=== PATIENT | male | born 1975 | race Caucasian/White ===

== ENCOUNTER 2017-04-16 16:16 | Emergency (ER) | payer MEDICAID ==
[~2017-04-16] VITALS: Ht 175.3 cm; Wt 96.0 kg
[~2017-04-16 16:16] MED LIST: ALBU8.5H8 IH; CHLO25CA10 PO; CYCL-1 PO; METH500T PO; NEOM10SO7 RIGHT EAR; NO HOME MEDS
[2017-04-16 16:59] LABS: BASOPHILS % (AUTO) 0.4 % (0-1); EOSINOPHILS # (AUTO) 0.2 X10'3 (0-0.9); EOSINOPHILS % (AUTO) 1.7 % (0-6); HEMATOCRIT 43.3 % (42.0-52.0); HEMOGLOBIN 15.3 g/dl (14.0-17.9); LYMPHOCYTES # (AUTO) 1.8 X10'3 (1.1-4.8); LYMPHOCYTES % (AUTO) 17.9 % (21-51); MEAN CORPUSCULAR HEMOGLOBIN 34.4 PG (27.0-31.0); MEAN CORPUSCULAR HGB CONC 35.3 % (33.0-36.5); MEAN CORPUSCULAR VOLUME 97.4 FL (78-98); MEAN PLATELET VOLUME 9.4 FL (7.4-10.4); MONOCYTES # (AUTO) 0.8 X10'3 (0-0.9); MONOCYTES % (AUTO) 7.9 % (2-12); NEUTROPHILS # (AUTO) 7.1 X10'3 (1.8-7.7); NEUTROPHILS % (AUTO) 72.1 % (42-75); PLATELET COUNT 107 X10'3 (140-440); RED BLOOD COUNT 4.45 X10'6 (4.70-6.10); WHITE BLOOD COUNT 9.9 X10'3 (4.5-11.0)
[2017-04-16 17:08] LABS: PARTIAL THROMBOPLASTIN TIME 25 SECONDS (22-32); PROTHROMBIN TIME 9.9 SECONDS (9.0-12.0)
[2017-04-16 17:13] LABS: ALANINE AMINOTRANSFERASE 142 U/L (12-78); ALBUMIN 3.9 G/DL (3.4-5.0); ALKALINE PHOSPHATASE 107 IU/L (46-116); ANION GAP 13 (8-16); ASPARTATE AMINO TRANSFERASE 58 U/L (10-37); BILIRUBIN,TOTAL 0.8 MG/DL (0.1-1.0); BLOOD UREA NITROGEN 13 MG/DL (7-18); BUN/CREATININE RATIO 11.9 (5.4-32.0); CALCIUM 9.3 MG/DL (8.5-10.1); CHLORIDE 103 MMOL/L (99-107); CREATININE 1.09 MG/DL (0.60-1.10); GLUCOSE 88 MG/DL (70-104); POTASSIUM 3.7 MMOL/L (3.5-5.1); SODIUM 139 MMOL/L (135-145); TOTAL CARBON DIOXIDE 23.5 MMOL/L (24-32); TOTAL PROTEIN 7.9 G/DL (6.4-8.2); eGFR 74 ML/MIN
[2017-04-16] MEDS ORDERED: ipratropium/albuterol 3ml nebule NEB ONE (17:30)
[2017-04-16] MEDS ORDERED: normal saline 1000ML IV soln IVB ONE (17:35)
[2017-04-16] MEDS ORDERED: LORazepam 2 mg/ml vial IV ONE (18:55)
[2017-04-16] MEDS ORDERED: benzonatate 100mg capsule PO ONE (19:15)
[2017-04-16] MEDS ORDERED: BENZ-16 PO (19:43)
[2017-04-16 20:16] VITALS: BP 136/87
[2017-04-16] MEDS ORDERED: SULF1TAB49 PO (20:21)
== END 2017-04-16 20:28 | disposition home or self-care (01) ==
LOC: ER 16:17
DX: F10.10 Alcohol abuse, uncomplicated (principal); R50.9 Fever, unspecified; R05 Cough; G89.29 Other chronic pain; M54.9 Dorsalgia, unspecified; Z98.890 Other specified postprocedural states; Y90.9 Presence of alcohol in blood, level not specified
CPT/HCPCS: 36415; 80053; 84484; 85025; 85610; 85730; 93005; 94640; 94760; 96361; 96374; 99285; J2060; J7030

== ENCOUNTER 2017-05-23 14:18 | Emergency (ER) | payer MEDICAID ==
[~2017-05-23] VITALS: Ht 175.3 cm; Wt 96.3 kg
[2017-05-23] MEDS ORDERED: HYDR-565 PO (15:38)
[2017-05-23 16:00] VITALS: BP 134/79
== END 2017-05-23 16:03 | disposition home or self-care (01) ==
LOC: ER 14:18
DX: M54.5 Low back pain (principal); G89.29 Other chronic pain
CPT/HCPCS: 99283

== ENCOUNTER 2017-09-02 08:18 | Emergency (ER) | payer MEDICAID ==
[~2017-09-02] VITALS: Ht 172.7 cm; Wt 96.0 kg
[2017-09-02 08:36] VITALS: BP 149/80
[2017-09-02] MEDS ORDERED: LIDOcaine 1.5% w/epinephrine 1:200,000 5ml ampul IJ ONE (09:35)
[2017-09-02] MEDS ORDERED: HYDR-565 PO (09:40)
[2017-09-02] MEDS ORDERED: SULF1TAB49 PO (09:40)
== END 2017-09-02 10:13 | disposition home or self-care (01) ==
LOC: ER 08:19
DX: L02.413 Cutaneous abscess of right upper limb (principal); L02.214 Cutaneous abscess of groin; G89.29 Other chronic pain; Z86.14 Personal history of Methicillin resistant Staphylococcus aureus infection; Z98.890 Other specified postprocedural states; Z79.899 Other long term (current) drug therapy
CPT/HCPCS: 10060; 99283; A6446; A6449; J3490

== ENCOUNTER 2018-05-01 00:02 | Emergency (ER) | payer MEDICAID ==
[~2018-05-01] VITALS: Ht 175.3 cm; Wt 99.2 kg
[~2018-05-01 00:02] MED LIST changes: +HYDR-4383 PO; -NO HOME MEDS
[2018-05-01 00:05] VITALS: BP 129/95
[2018-05-01] MEDS ORDERED: bacitracin 15gm ointment TP STA (01:07)
[2018-05-01] MEDS ORDERED: SULF1TAB49 PO (01:12)
== END 2018-05-01 01:15 | disposition home or self-care (01) ==
LOC: ER 00:03
DX: L02.11 Cutaneous abscess of neck (principal); G89.29 Other chronic pain; Z98.890 Other specified postprocedural states; Z86.14 Personal history of Methicillin resistant Staphylococcus aureus infection; Z79.899 Other long term (current) drug therapy
CPT/HCPCS: 10060; 99283

== ENCOUNTER 2019-02-21 12:14 | Inpatient (IN) | payer MEDICAID ==
[~2019-02-21] VITALS: Ht 172.7 cm; Wt 98.1 kg
[2019-02-21] MEDS ORDERED: normal saline 1000ML IV soln IV ONE (13:05)
[2019-02-21] MEDS ORDERED: vancomycin/NS 1 GM ADD-VANTAGE 250 ML IV ONE (13:05)
[2019-02-21] MEDS ORDERED: CefTRIAXone 2gm/D5W 50ml 50 ML IV ONE (13:05)
[2019-02-21] MEDS ORDERED: iohexol 300mg/ml 100ml inj. ONE (13:17)
--- NOTE | 2019-02-21 13:43 | NUR ---
RELIEVING RN FOR BREAK, STARTED 22GU TO LEFT AC ON 1ST ATTEMPT, ONE SET OF BLOOD CX DRAWN, BLACKTOP SPREADER AT BEDSIDE, 1ST LITER NS INFUSING W/O
[2019-02-21] MEDS ORDERED: morphine 4 MG/ML inj SYRINge IV ONE (14:25)
[2019-02-21] MEDS ORDERED: ondansetron/PF 4mg/2ml inj IV ONE (14:25)
[2019-02-21 15:16] LABS: BASOPHILS # (AUTO) 0.1 X10'3 (0-0.2); EOSINOPHILS # (AUTO) 0.1 X10'3 (0-0.9); MEAN CORPUSCULAR HEMOGLOBIN 35.1 PG (27.0-31.0); MONOCYTES # (AUTO) 1.1 X10'3 (0-0.9); PLATELET COUNT 92 X10'3 (140-440)
[2019-02-21 15:18] LABS: BASOPHILS % (AUTO) 0.7 % (0-1); EOSINOPHILS % (AUTO) 0.8 % (0-6); HEMATOCRIT 40.4 % (42.0-52.0); HEMOGLOBIN 14.4 g/dl (14.0-17.9); LYMPHOCYTES % (AUTO) 16.5 % (21-51); MEAN CORPUSCULAR HGB CONC 35.7 g/dL (33.0-36.5); MEAN CORPUSCULAR VOLUME 98.3 FL (78-98); MEAN PLATELET VOLUME 9.3 FL (7.4-10.4); NEUTROPHILS # (AUTO) 8.7 X10'3 (1.8-7.7); RED BLOOD COUNT 4.11 X10'6 (4.70-6.10); RED CELL DISTRIBUTION WIDTH 13.2 % (11.5-14.5)
[2019-02-21 15:29] LABS: ALANINE AMINOTRANSFERASE 50 U/L (12-78); ALBUMIN 3.1 G/DL (3.4-5.0); ALBUMIN/GLOBULIN RATIO 0.8 (1.1-1.5); ALKALINE PHOSPHATASE 81 IU/L (46-116); ANION GAP 8 (8-16); ASPARTATE AMINO TRANSFERASE 25 U/L (10-37); BILIRUBIN,TOTAL 0.6 MG/DL (0.1-1.0); BLOOD UREA NITROGEN 13 MG/DL (7-18); BUN/CREATININE RATIO 15.1 (5.4-32.0); CALCIUM 8.3 MG/DL (8.5-10.1); CHLORIDE 101 MMOL/L (99-107); CREATININE 0.86 MG/DL (0.60-1.10); GLUCOSE 91 MG/DL (70-104); MAGNESIUM 1.2 MG/DL (1.5-2.4); POTASSIUM 3.7 MMOL/L (3.5-5.1); SODIUM 135 MMOL/L (135-145); TOTAL CARBON DIOXIDE 25.9 MMOL/L (24-32); TOTAL PROTEIN 6.9 G/DL (6.4-8.2); eGFR > 90 ML/MIN
[2019-02-21] MEDS ORDERED: HYDR-3973 PO (15:29)
[2019-02-21] MEDS ORDERED: GABA-530 PO (15:29)
[2019-02-21] MEDS ORDERED: MULT1TAB74 PO (15:29)
[2019-02-21] MEDS ORDERED: DULO30CA52 PO (15:29)
[2019-02-21] MEDS ORDERED: MELO-100 PO (15:29)
[2019-02-21 15:49] LABS: CLARITY,URINE CLEAR (Clear); COLOR,URINE YELLOW (Yellow); GLUCOSE, URINE NEGATIVE (Neg); KETONES,URINE NEGATIVE (Neg); LEUKOCYTE ESTERASE ,URINE NEGATIVE (Neg); NITRITES, URINE NEGATIVE (Neg); OCCULT BLOOD,URINE NEGATIVE (Neg); PROTEIN,URINE NEGATIVE (Neg); UROBILINOGEN,URINE 0.2 E.U/dL (0.2-1.0)
[2019-02-21 15:50] LABS: UA COLLECTION TYPE NON-SPECIFIED
[2019-02-21 16:27] LABS: PARTIAL THROMBOPLASTIN TIME 27 SECONDS (22-32)
[2019-02-21] MEDS ORDERED: magnesium 2GM in 50ml NS 50 ML IV ONE (16:50)
[2019-02-21] MEDS ORDERED: normal saline 1000ML IV soln IVB ONE (16:55)
[2019-02-21] MEDS ORDERED: magnesium hydroxide 30ml (MOM) UD suspension PO PRN (17:15)
[2019-02-21] MEDS ORDERED: metoclopramide 5 mg/ml inj IV PRN (17:15)
[2019-02-21] MEDS ORDERED: magnesium Cl slow-release 64mg tablet PO PRN (17:15)
[2019-02-21] MEDS ORDERED: ondansetron/PF 4mg/2ml inj IV PRN (17:15)
[2019-02-21] MEDS ORDERED: mag hydrox/Alum hydrox/simeth 30ml oral suspension PO PRN (17:15)
[2019-02-21] MEDS ORDERED: diphenhydrAMINE 25mg capsule PO PRN (17:15)
[2019-02-21] MEDS ORDERED: HYDROcodone/acetaminophen 5mg/325mg tablet PO PRN (17:15)
[2019-02-21] MEDS ORDERED: magnesium 2GM in 50ml NS 50 ML IV PRN (17:15)
[2019-02-21] MEDS ORDERED: potassium CL 10mEq/100ml bag 100 ML IV PRN ×2 (17:15)
[2019-02-21] MEDS ORDERED: magnesium 4gm in 100ml NS 100 ML IV PRN (17:15)
[2019-02-21] MEDS ORDERED: bisacodyl 10mg suppository rectal RC PRN (17:15)
[2019-02-21] MEDS ORDERED: acetaminophen 325mg tablet PO PRN ×2 (17:15)
[2019-02-21] MEDS ORDERED: diphenhydrAMINE 50 mg/ml inj IV PRN (17:15)
[2019-02-21] MEDS ORDERED: potassium Cl 20 mEq SR tablet PO PRN ×2 (17:15)
[2019-02-21] MEDS: HYDROcodone/acetaminophen 10/325mg tab PO PRN (17:30)
--- NOTE | 2019-02-21 17:46 | NUR ---
RELIEVING RN FOR LUNCH, PT IS RESTING QUIETLY ON GURNEY, RESP EVEN AND UNLABORED, WAITING FOR BED ASSIGNMENT
[2019-02-21 19:05] VITALS: BP 120/79
--- NOTE | 2019-02-21 19:05 | NUR ---
PATIENT ADMITTED TO ROOM 346B FROM ER FOR CELLULITIS OF THE LEFT NECK. PLACED COMFORTABLE IN BED. VITAL SIGNS TAKEN AND RECORDED.
[2019-02-21] MEDS ORDERED: thiamine inj. 100 MG in normal saline 100ml IV soln 100 ML IV ONE (20:20)
[2019-02-21] MEDS ORDERED: haloperidol 5mg tablet PO PRN (20:20)
[2019-02-21] MEDS ORDERED: normal saline 1000ml 1,000 ML IV SCH (20:20)
[2019-02-21] MEDS ORDERED: haloperidol lactate 5mg/ml inj IM PRN (20:20)
[2019-02-21] MEDS ORDERED: LORazepam 2 mg/ml vial IV PRN (20:20)
[2019-02-21] MEDS: normal saline 1000ml 1,000 ML IV SCH (20:57)
[2019-02-21] MEDS ORDERED: temazepam 15mg capsule PO PRN (21:00)
[2019-02-21] MEDS: gabapentin 100mg capsule PO SCH (21:54)
[2019-02-22] VITALS: BP 115/72
[2019-02-22] MEDS: VANCOmycin 1250MG/NS 250ml Bag 250 ML IV SCH ×3 (00:27→16:42)
[2019-02-22] MEDS: HYDROcodone/acetaminophen 10/325mg tab PO PRN ×2 (04:08→14:42)
--- NOTE | 2019-02-22 06:00 | NUR ---
Patient in room [facility]. I have received report from MAYNOR MCGUIRE RN and had the opportunity to ask questions and assume patient care.
[2019-02-22 06:13] LABS: BASOPHILS % (AUTO) 0.4 % (0-1); EOSINOPHILS # (AUTO) 0.1 X10'3 (0-0.9); EOSINOPHILS % (AUTO) 1.4 % (0-6); HEMATOCRIT 38.3 % (42.0-52.0); HEMOGLOBIN 13.5 g/dl (14.0-17.9); LYMPHOCYTES # (AUTO) 1.6 X10'3 (1.1-4.8); LYMPHOCYTES % (AUTO) 22.6 % (21-51); MEAN CORPUSCULAR HEMOGLOBIN 35.2 PG (27.0-31.0); MEAN CORPUSCULAR HGB CONC 35.4 g/dL (33.0-36.5); MEAN CORPUSCULAR VOLUME 99.6 FL (78-98); MEAN PLATELET VOLUME 9.3 FL (7.4-10.4); MONOCYTES # (AUTO) 0.7 X10'3 (0-0.9); NEUTROPHILS # (AUTO) 4.7 X10'3 (1.8-7.7); NEUTROPHILS % (AUTO) 65.6 % (42-75); PLATELET COUNT 75 X10'3 (140-440); RED BLOOD COUNT 3.84 X10'6 (4.70-6.10); RED CELL DISTRIBUTION WIDTH 13.3 % (11.5-14.5); WHITE BLOOD COUNT 7.2 X10'3 (4.5-11.0)
--- NOTE | 2019-02-22 06:30 | NUR ---
Problems reprioritized. Patient report given, questions answered & plan of care reviewed with ANDERSON COTA.
[2019-02-22 06:37] LABS: ALANINE AMINOTRANSFERASE 46 U/L (12-78); ALBUMIN/GLOBULIN RATIO 0.8 (1.1-1.5); ALKALINE PHOSPHATASE 75 IU/L (46-116); ANION GAP 4 (8-16); ASPARTATE AMINO TRANSFERASE 19 U/L (10-37); BILIRUBIN,TOTAL 0.5 MG/DL (0.1-1.0); BLOOD UREA NITROGEN 12 MG/DL (7-18); BUN/CREATININE RATIO 14.5 (5.4-32.0); CALCIUM 8.2 MG/DL (8.5-10.1); CHLORIDE 105 MMOL/L (99-107); CREATININE 0.83 MG/DL (0.60-1.10); GLUCOSE 91 MG/DL (70-104); MAGNESIUM 2.5 MG/DL (1.5-2.4); PHOSPHORUS 3.4 MG/DL (2.3-4.5); POTASSIUM 4.3 MMOL/L (3.5-5.1); SODIUM 138 MMOL/L (135-145); TOTAL CARBON DIOXIDE 28.6 MMOL/L (24-32); TOTAL PROTEIN 6.7 G/DL (6.4-8.2); eGFR > 90 ML/MIN
[2019-02-22] MEDS: normal saline 1000ml 1,000 ML IV SCH ×2 (06:45→20:14)
[2019-02-22] MEDS: enoxaparin 40mg/0.4ml syringe SQ SCH (07:21)
[2019-02-22 08:00] VITALS: BP 116/80
[2019-02-22] MEDS: K and/or MAG REPLACEMENT MC SCH (08:00)
[2019-02-22] MEDS: gabapentin 100mg capsule PO SCH ×3 (08:29→20:13)
[2019-02-22] MEDS: thiamine 100mg tablet PO SCH (08:30)
[2019-02-22] MEDS: multivitamins, therapeutics tablet PO SCH (08:30)
[2019-02-22] MEDS: folic acid 1mg tablet PO SCH (08:30)
[2019-02-22] MEDS: duloxetine 30mg CAPSULE.DR PO SCH (08:31)
[2019-02-22] MEDS ORDERED: FLU VACC QS 2019-20 (6 MOS UP) 60 MCG/0.5 ML VIAL IMVAC ONE (10:00)
[2019-02-22] MEDS ORDERED: pneumococcal 23-VAL P-sac vacc 25 mcg/0.5ml vial IMVAC ONE (10:00)
--- NOTE | 2019-02-22 10:23 | NUR ---
PT STATES HE DOES NOT WANT PNE VACCINE BUT HE DOES WANT FLU VACCINE. CALLED PHARMACY TO SEE WHEN FLU VACCINES WILL BE AVAILABLE
[2019-02-22 11:43] VITALS: BP 125/91
[2019-02-22] MEDS ORDERED: LIDOcaine 1%/PF 5ML 10 MG/ML VIAL ONE (13:55)
--- NOTE | 2019-02-22 18:10 | NUR ---
Patient in room [facility]. I have received report from Herlinda COTA and had the opportunity to ask questions and assume patient care.
--- NOTE | 2019-02-22 18:16 | NUR ---
REVIEWED STUDENT'S CHARTING
[2019-02-22 19:00] VITALS: BP 123/71
[2019-02-22] MEDS: lactobacillus rhamnosus 10,000 MMU CELLS/CAPSULE PO SCH (20:13)
[2019-02-22] MEDS ORDERED: VANCOMYCIN LEVEL IV ONE (23:30)
[2019-02-23] VITALS: BP 127/72
[2019-02-23] MEDS: VANCOmycin 1250MG/NS 250ml Bag 250 ML IV SCH (00:18)
[2019-02-23] MEDS: normal saline 1000ml 1,000 ML IV SCH ×2 (02:45→08:59)
[2019-02-23 05:23] LABS: ALANINE AMINOTRANSFERASE 49 U/L (12-78); ALBUMIN 3.1 G/DL (3.4-5.0); ALBUMIN/GLOBULIN RATIO 0.8 (1.1-1.5); ALKALINE PHOSPHATASE 95 IU/L (46-116); ANION GAP 3 (8-16); BILIRUBIN,TOTAL 0.5 MG/DL (0.1-1.0); BLOOD UREA NITROGEN 10 MG/DL (7-18); CALCIUM 8.3 MG/DL (8.5-10.1); CHLORIDE 106 MMOL/L (99-107); CREATININE 0.77 MG/DL (0.60-1.10); GLUCOSE 99 MG/DL (70-104); MAGNESIUM 2.1 MG/DL (1.5-2.4); SODIUM 139 MMOL/L (135-145); TOTAL CARBON DIOXIDE 29.6 MMOL/L (24-32); TOTAL PROTEIN 6.9 G/DL (6.4-8.2); eGFR > 90 ML/MIN
[2019-02-23 05:30] LABS: ASPARTATE AMINO TRANSFERASE 35 U/L (10-37); PHOSPHORUS 2.8 MG/DL (2.3-4.5); POTASSIUM 4.4 MMOL/L (3.5-5.1)
[2019-02-23 05:34] LABS: BASOPHILS % (AUTO) 0.2 % (0-1); EOSINOPHILS # (AUTO) 0.2 X10'3 (0-0.9); EOSINOPHILS % (AUTO) 2.7 % (0-6); HEMATOCRIT 39.3 % (42.0-52.0); HEMOGLOBIN 14.2 g/dl (14.0-17.9); LYMPHOCYTES # (AUTO) 1.5 X10'3 (1.1-4.8); LYMPHOCYTES % (AUTO) 24.3 % (21-51); MEAN CORPUSCULAR HEMOGLOBIN 35.6 PG (27.0-31.0); MEAN CORPUSCULAR VOLUME 98.9 FL (78-98); MEAN PLATELET VOLUME 10.3 FL (7.4-10.4); MONOCYTES # (AUTO) 0.6 X10'3 (0-0.9); MONOCYTES % (AUTO) 9.9 % (2-12); NEUTROPHILS # (AUTO) 3.9 X10'3 (1.8-7.7); NEUTROPHILS % (AUTO) 62.9 % (42-75); PLATELET COUNT 83 X10'3 (140-440); RED BLOOD COUNT 3.97 X10'6 (4.70-6.10); RED CELL DISTRIBUTION WIDTH 13.2 % (11.5-14.5); WHITE BLOOD COUNT 6.2 X10'3 (4.5-11.0)
--- NOTE | 2019-02-23 06:20 | NUR ---
Patient in room [facility]. I have received report from Darling COTA and had the opportunity to ask questions and assume patient care.
--- NOTE | 2019-02-23 06:39 | NUR ---
gave report to Eliz COTA pt is resting on RA, in no apparent distress, call light and items of freq use within reach.
[2019-02-23 07:00] VITALS: BP 133/116
[2019-02-23 07:40] LABS: MEAN CORPUSCULAR HGB CONC 35.4 g/dL (33.0-36.5)
[2019-02-23] MEDS: enoxaparin 40mg/0.4ml syringe SQ SCH (08:00)
[2019-02-23] MEDS: K and/or MAG REPLACEMENT MC SCH (08:00)
--- NOTE | 2019-02-23 08:48 | NUR ---
Problems reprioritized. Patient report given, questions answered & plan of care reviewed with Joy COTA.
--- NOTE | 2019-02-23 08:48 | NUR ---
Patient in room [facility]. I have received report from CIPRIANO Wellington and had the opportunity to ask questions and assume patient care.
[2019-02-23] MEDS: gabapentin 100mg capsule PO SCH ×2 (08:59→12:29)
[2019-02-23] MEDS: lactobacillus rhamnosus 10,000 MMU CELLS/CAPSULE PO SCH (09:00)
[2019-02-23] MEDS: multivitamins, therapeutics tablet PO SCH (09:00)
[2019-02-23] MEDS: folic acid 1mg tablet PO SCH (09:00)
[2019-02-23] MEDS: duloxetine 30mg CAPSULE.DR PO SCH (09:00)
[2019-02-23] MEDS: thiamine 100mg tablet PO SCH (09:00)
[2019-02-23 11:25] VITALS: BP 119/78
[2019-02-23] MEDS ORDERED: DOXY-243 PO (12:04)
[2019-02-23] MEDS ORDERED: SULF1TAB49 PO (12:04)
--- NOTE | 2019-02-23 12:57 | NUR ---
Pt discharged per nursing, ride pending. Discharge instructions and medications reviewed. New prescriptions e-scripted to [facility] [address]. Pt instructed to follow up with PCP in 1-2 weeks and to return to ED if symptoms return. IV DC'd, cannula intact. Pt instructed to hit call light when ride has arrived. Will continue to monitor.
[2019-02-23] MEDS ORDERED: LORazepam 1 MG tablet PO PRN (20:20)
[2019-02-23] MEDS ORDERED: LORazepam 2 mg/ml vial IV PRN (20:20)
[2019-02-24] MEDS ORDERED: VANCOMYCIN LEVEL IV ONE (07:30)
[2019-02-25] MEDS ORDERED: LORazepam 1 MG tablet PO PRN (20:20)
[2019-02-25] MEDS ORDERED: LORazepam 2 mg/ml vial IV PRN (20:20)
== END 2019-02-23 13:05 | disposition home or self-care (01) | DRG 720 ==
LOC: ER 12:14 → ED HOLD 17:29 → SUR 3N 19:13
PROVIDERS: ADMIT Family Medicine; ATTEND Family Medicine
PROC: BW2F1ZZ Computerized Tomography (CT Scan) of Neck using Low Osmolar Contrast (ICD-10-PCS; principal; 2019-02-21)
DX: A41.9 Sepsis, unspecified organism (principal); E83.42 Hypomagnesemia; F10.20 Alcohol dependence, uncomplicated; F41.1 Generalized anxiety disorder; F32.9 Major depressive disorder, single episode, unspecified; Z16.29 Resistance to other single specified antibiotic; M54.9 Dorsalgia, unspecified; G89.29 Other chronic pain; L02.11 Cutaneous abscess of neck; L03.221 Cellulitis of neck; Z86.14 Personal history of Methicillin resistant Staphylococcus aureus infection; Z28.21 Immunization not carried out because of patient refusal; Z79.899 Other long term (current) drug therapy
CPT/HCPCS: 36415; 70491; 71045; 76536; 76937; 80053; 80202; 81003; 82948; 83605; 83735; 84100; 84145; 85025; 85610; 85730; 87040; 87081; 90732; 93005; 96365; 96368; 96375; 99285; G0378; J0696; J2270; J2405; J3370; J3411; J3475; J7030; Q9967

== ENCOUNTER 2019-06-11 10:44 | Emergency (ER) | payer MEDICAID ==
[~2019-06-11] VITALS: Ht 172.7 cm; Wt 90.0 kg
[~2019-06-11 10:44] MED LIST changes: -ALBU8.5H8 IH; -CHLO25CA10 PO; -CYCL-1 PO; +DULO30CA52 PO; +GABA-530 PO; +HYDR-3973 PO; -HYDR-4383 PO; +MELO-100 PO; -METH500T PO; +MULT1TAB74 PO; -NEOM10SO7 RIGHT EAR
[2019-06-11 10:53] VITALS: BP 141/88
== END 2019-06-11 12:43 | disposition left against medical advice (07) ==
LOC: ER 10:45
DX: R05 Cough (principal); Z53.21 Procedure and treatment not carried out due to patient leaving prior to being seen by health care provider

== ENCOUNTER 2020-01-08 11:34 | Emergency (ER) | payer MEDICAID ==
[~2020-01-08] VITALS: Ht 172.7 cm; Wt 93.2 kg
[~2020-01-08 11:34] MED LIST changes: +MULT-620 PO; -MULT1TAB74 PO
[2020-01-08] MEDS ORDERED: dexamethasone sod phosphate 10mg/ml inj IV STA (12:42)
[2020-01-08] MEDS ORDERED: ketorolac trometh. 30mg/ml inj. IV ONE (12:45)
[2020-01-08] MEDS ORDERED: ondansetron/PF 4mg/2ml inj IV ONE ×2 (12:45→18:05)
[2020-01-08] MEDS ORDERED: normal saline 1000ML IV soln IVB ONE (12:45)
[2020-01-08] MEDS ORDERED: diazepam inj 5 MG/ML inj. IV ONE (12:45)
--- NOTE | 2020-01-08 13:00 | NUR ---
pt c/o lower back pain s/p grd level fall yesterday, little relief with med taken at home, pt c/o bilateral feet feeling numb, loss of control of bladder, pt is able to move legs but pain is really bad,
[2020-01-08] MEDS: morphine 4 MG/ML inj SYRINge IV PRN ×2 (13:11→14:46)
[2020-01-08 14:25] LABS: BASOPHILS # (AUTO) 0.1 X10'3 (0-0.2); EOSINOPHILS # (AUTO) 0.2 X10'3 (0-0.9); EOSINOPHILS % (AUTO) 3.5 % (0-6); HEMATOCRIT 39.9 % (42.0-52.0); HEMOGLOBIN 14.1 g/dl (14.0-17.9); LYMPHOCYTES # (AUTO) 1.5 X10'3 (1.1-4.8); LYMPHOCYTES % (AUTO) 27.1 % (21-51); MEAN CORPUSCULAR HEMOGLOBIN 35.9 PG (27.0-31.0); MEAN CORPUSCULAR HGB CONC 35.3 g/dL (33.0-36.5); MEAN CORPUSCULAR VOLUME 101.7 FL (78-98); MONOCYTES # (AUTO) 0.4 X10'3 (0-0.9); MONOCYTES % (AUTO) 8.1 % (2-12); NEUTROPHILS # (AUTO) 3.2 X10'3 (1.8-7.7); NEUTROPHILS % (AUTO) 60.3 % (42-75); PLATELET COUNT 100 X10'3 (140-440); RED BLOOD COUNT 3.92 X10'6 (4.70-6.10); RED CELL DISTRIBUTION WIDTH 13.3 % (11.5-14.5); WHITE BLOOD COUNT 5.4 X10'3 (4.5-11.0)
[2020-01-08 14:41] LABS: ALANINE AMINOTRANSFERASE 57 U/L (12-78); ALBUMIN 3.3 G/DL (3.4-5.0); ALBUMIN/GLOBULIN RATIO 0.9 (1.1-1.5); ALKALINE PHOSPHATASE 64 IU/L (46-116); ANION GAP 5 (8-16); ASPARTATE AMINO TRANSFERASE 29 U/L (10-37); BILIRUBIN,TOTAL 0.4 MG/DL (0.1-1.0); BLOOD UREA NITROGEN 9 MG/DL (7-18); BUN/CREATININE RATIO 10.6 (5.4-32.0); CALCIUM 8.5 MG/DL (8.5-10.1); CHLORIDE 106 MMOL/L (99-107); CREATININE 0.85 MG/DL (0.60-1.10); GLUCOSE 86 MG/DL (70-104); POTASSIUM 3.8 MMOL/L (3.5-5.1); SODIUM 139 MMOL/L (135-145); TOTAL CARBON DIOXIDE 28.5 MMOL/L (24-32); TOTAL PROTEIN 6.8 G/DL (6.4-8.2); eGFR > 90 ML/MIN
--- NOTE | 2020-01-08 14:47 | NUR ---
pt to MRI on [place] with medical radiation tech
--- NOTE | 2020-01-08 16:03 | NUR ---
pt is back from MRI, pt said he has no pain as long as he stays still, still c/o numbness up to bilateral knees, unable to move toes, no incontinence of urine at this time, pt has no urge to urinate yet, waiting for MRI results
--- NOTE | 2020-01-08 16:46 | NUR ---
Kitty WELCH at bedside to reevalute pt, plan to consult with neurology at [facility]
--- NOTE | 2020-01-08 17:45 | NUR ---
pt urinated 700ml of urine, was incontinent of a small amount of urine prior to using urinal,
[2020-01-08] MEDS ORDERED: fentaNYL/PF 50MCG/1 ML 2ML syringe IV ONE (18:05)
[2020-01-08 18:07] LABS: CLARITY,URINE CLEAR (Clear); COLOR,URINE YELLOW (Yellow); GLUCOSE, URINE NEGATIVE (Neg); KETONES,URINE NEGATIVE (Neg); LEUKOCYTE ESTERASE ,URINE NEGATIVE (Neg); NITRITES, URINE NEGATIVE (Neg); OCCULT BLOOD,URINE NEGATIVE (Neg); PH,URINE 6.5 (4.8-8.0); PROTEIN,URINE NEGATIVE (Neg); UROBILINOGEN,URINE 0.2 E.U/dL (0.2-1.0)
[2020-01-08 18:15] VITALS: BP 136/78
[2020-01-08 18:16] LABS: UA COLLECTION TYPE CLN CATCH MIDSTREAM
--- NOTE | 2020-01-08 18:33 | NUR ---
report to paramedics, pt is being transferred to [facility]
--- NOTE | 2020-01-08 18:35 | NUR ---
report to Tessa COTA at [facility]
[2020-01-08] MEDS ORDERED: GADOTERATE MEGLUMINE 7.5 MMOL/15 ML VIAL IV ONE (19:13)
== END 2020-01-08 18:42 | disposition short-term general hospital (02) ==
LOC: ER 11:35
DX: G89.11 Acute pain due to trauma (principal); M54.5 Low back pain; R53.1 Weakness; R32 Unspecified urinary incontinence; Z86.14 Personal history of Methicillin resistant Staphylococcus aureus infection; Z72.89 Other problems related to lifestyle; Z98.890 Other specified postprocedural states; Z79.899 Other long term (current) drug therapy
CPT/HCPCS: 36415; 72158; 80053; 81003; 85025; 96361; 96374; 96375; 96376; 99291; A9575; J1100; J1885; J2270; J2405; J3010; J3360; J7030

== ENCOUNTER 2020-11-05 10:25 | Emergency (ER) | payer MEDICAID ==
[~2020-11-05] VITALS: Ht 172.7 cm; Wt 96.2 kg
[2020-11-05 10:26] VITALS: BP 126/86
[2020-11-05] MEDS ORDERED: LIDOcaine 1% W/epiNEPHrine 1:200,000 10ml vial IJ ONE (11:15)
[2020-11-05] MEDS ORDERED: CEPH250T PO (11:32)
[2020-11-05] MEDS ORDERED: SULF1TAB49 PO (11:32)
== END 2020-11-05 11:58 | disposition home or self-care (01) ==
LOC: ER 10:25
DX: L02.411 Cutaneous abscess of right axilla (principal); L02.211 Cutaneous abscess of abdominal wall; G89.29 Other chronic pain; F15.90 Other stimulant use, unspecified, uncomplicated; Z86.14 Personal history of Methicillin resistant Staphylococcus aureus infection; Z98.890 Other specified postprocedural states; Z72.89 Other problems related to lifestyle; Z79.2 Long term (current) use of antibiotics; Z79.899 Other long term (current) drug therapy
CPT/HCPCS: 10060; 10061; 99283; 99284

== ENCOUNTER 2020-12-19 22:41 | Emergency (ER) | payer MEDICAID ==
[~2020-12-19] VITALS: Ht 175.3 cm; Wt 100.0 kg
[~2020-12-19 22:41] MED LIST changes: +CEPH250T PO
[2020-12-19 22:48] VITALS: BP 133/94
[2020-12-19] MEDS ORDERED: proparacaine 0.5% ophthalmic drops 15ml EACHEYE ONE (22:55)
== END 2020-12-20 05:52 | disposition left against medical advice (07) ==
LOC: ER 22:42
DX: H57.89 Other specified disorders of eye and adnexa (principal); Z53.21 Procedure and treatment not carried out due to patient leaving prior to being seen by health care provider

== ENCOUNTER 2021-05-02 13:23 | Emergency (ER) | payer MEDICAID | END 2021-05-02 14:50 | disposition left against medical advice (07) | LOC: ER 13:24 | DX: K08.89 Other specified disorders of teeth and supporting structures (principal); Z53.21 Procedure and treatment not carried out due to patient leaving prior to being seen by health care provider ==

== ENCOUNTER 2021-10-10 10:37 | Emergency (ER) | payer MEDICAID ==
[~2021-10-10] VITALS: Ht 172.7 cm; Wt 100.0 kg
[2021-10-10 10:46] VITALS: BP 156/96
[2021-10-10] MEDS ORDERED: amox tr/potassium clavulanate 875/125mg TAB PO ONE (11:45)
[2021-10-10] MEDS ORDERED: ibuprofen tablet 400 MG TABLET PO ONE (11:45)
[2021-10-10] MEDS ORDERED: AMOX-580 PO ×3 (11:47→11:57)
== END 2021-10-10 11:58 | disposition home or self-care (01) ==
LOC: ER 10:37
DX: K04.7 Periapical abscess without sinus (principal); G89.29 Other chronic pain; M54.9 Dorsalgia, unspecified; F32.A Depression, unspecified; F15.10 Other stimulant abuse, uncomplicated; Z79.899 Other long term (current) drug therapy
CPT/HCPCS: 99283

== ENCOUNTER 2021-12-28 09:41 | Emergency (ER) | payer MEDICAID ==
[~2021-12-28] VITALS: Ht 172.7 cm; Wt 97.7 kg
[~2021-12-28 09:41] MED LIST changes: +AMOX-580 PO; -CEPH250T PO
[2021-12-28 09:43] VITALS: BP 142/90
[2021-12-28] MEDS ORDERED: proparacaine 0.5% ophthalmic drops 15ml EACHEYE ONE (10:30)
[2021-12-28] MEDS ORDERED: CHLO25CA10 PO (10:44)
[2021-12-28] MEDS ORDERED: moxifloxacin 0.5% ophthalmic drops 3ml LEFTEYE SCH (10:45)
[2021-12-28] MEDS ORDERED: ketorolac trometh. 30mg/ml inj. IM ONE (11:20)
== END 2021-12-28 11:30 | disposition home or self-care (01) ==
LOC: ER 09:41
DX: H10.32 Unspecified acute conjunctivitis, left eye (principal); F10.930 Alcohol use, unspecified with withdrawal, uncomplicated; G89.29 Other chronic pain; F32.A Depression, unspecified; F15.10 Other stimulant abuse, uncomplicated; M54.9 Dorsalgia, unspecified; Z79.899 Other long term (current) drug therapy; Z79.1 Long term (current) use of non-steroidal anti-inflammatories (NSAID)
CPT/HCPCS: 96372; 99283; J1885

== ENCOUNTER 2022-07-31 23:20 | Emergency (ER) | payer MEDICAID ==
[~2022-07-31] VITALS: Ht 175.3 cm; Wt 100.0 kg
[~2022-07-31 23:20] MED LIST changes: +CHLO25CA10 PO
[2022-07-31 23:39] VITALS: BP 143/96
== END 2022-07-31 23:59 | disposition left against medical advice (07) ==
LOC: ER 23:20
DX: R25.1 Tremor, unspecified (principal); Z53.21 Procedure and treatment not carried out due to patient leaving prior to being seen by health care provider
CPT/HCPCS: 99281

== ENCOUNTER 2022-10-26 16:56 | Emergency (ER) | payer MEDICAID ==
[~2022-10-26] VITALS: Ht 172.7 cm; Wt 106.2 kg
[2022-10-26 17:29] VITALS: BP 143/91
[2022-10-26] MEDS ORDERED: IBUP-1986 PO (18:50)
[2022-10-26] MEDS ORDERED: cephalexin 250mg capsule PO ONE (18:50)
[2022-10-26] MEDS ORDERED: CEPH-585 PO (18:50)
[2022-10-26] MEDS ORDERED: ketorolac trometh inj. 60 MG/2 ML VIAL IM ONE (19:02)
== END 2022-10-26 19:11 | disposition home or self-care (01) ==
LOC: ER 16:56
DX: L03.113 Cellulitis of right upper limb (principal); M79.602 Pain in left arm; G89.29 Other chronic pain; M54.9 Dorsalgia, unspecified; F32.A Depression, unspecified; F15.10 Other stimulant abuse, uncomplicated; Z86.14 Personal history of Methicillin resistant Staphylococcus aureus infection; Z79.899 Other long term (current) drug therapy
CPT/HCPCS: 29125; 73130; 96372; 99283; J1885

== ENCOUNTER 2022-11-11 22:37 | Emergency (ER) | payer MEDICAID ==
[~2022-11-11] VITALS: Ht 172.7 cm; Wt 97.4 kg
[~2022-11-11 22:37] MED LIST changes: +CEPH-585 PO; +IBUP-1986 PO
[2022-11-11 23:10] VITALS: BP 122/89; PULSE 118; RESP 18; O2SAT 98
[2022-11-12] MEDS ORDERED: CHLO25CA10 PO (01:21)
[2022-11-12 01:29] VITALS: TEMP 98.4
== END 2022-11-12 01:29 | disposition home or self-care (01) ==
LOC: ER 22:38
DX: F10.10 Alcohol abuse, uncomplicated (principal); F32.A Depression, unspecified; G89.29 Other chronic pain; M54.9 Dorsalgia, unspecified; Z86.14 Personal history of Methicillin resistant Staphylococcus aureus infection; F15.10 Other stimulant abuse, uncomplicated; Z79.899 Other long term (current) drug therapy; Z79.1 Long term (current) use of non-steroidal anti-inflammatories (NSAID); Z79.2 Long term (current) use of antibiotics
CPT/HCPCS: 99283

== ENCOUNTER 2023-01-18 09:34 | Emergency (ER) | payer MEDICAID ==
[~2023-01-18] VITALS: Ht 172.7 cm; Wt 115.0 kg
[2023-01-18 09:37] VITALS: BP 155/99; PULSE 93; TEMP 97; O2SAT 98
[2023-01-18] MEDS ORDERED: ketorolac trometh inj. 60 MG/2 ML VIAL IM ONE (11:25)
[2023-01-18] MEDS ORDERED: diphenhydrAMINE 50 mg/ml inj IM ONE (11:25)
[2023-01-18] MEDS ORDERED: ondansetron/PF 4mg/2ml inj IM ONE (11:25)
[2023-01-18 11:55] VITALS: RESP 18
== END 2023-01-18 12:04 | disposition home or self-care (01) ==
LOC: ER 09:35
DX: G43.909 Migraine, unspecified, not intractable, without status migrainosus (principal); G89.29 Other chronic pain; F15.90 Other stimulant use, unspecified, uncomplicated; Z72.89 Other problems related to lifestyle; Z86.14 Personal history of Methicillin resistant Staphylococcus aureus infection; Z79.2 Long term (current) use of antibiotics; Z79.899 Other long term (current) drug therapy
CPT/HCPCS: 96372; 99284; J1200; J1885; J2405

== ENCOUNTER 2023-07-26 20:35 | Emergency (ER) | payer MEDICAID ==
[~2023-07-26] VITALS: Ht 172.7 cm; Wt 106.5 kg
[2023-07-26 21:53] LABS: BASOPHILS # (AUTO) 0.1 X10'3 (0-0.2); BASOPHILS % (AUTO) 1.2 % (0-1); EOSINOPHILS # (AUTO) 0.1 X10'3 (0-0.9); HEMATOCRIT 38.5 % (42.0-52.0); HEMOGLOBIN 13.6 g/dl (14.0-17.9); LYMPHOCYTES # (AUTO) 1.7 X10'3 (1.1-4.8); LYMPHOCYTES % (AUTO) 14.9 % (21-51); MEAN CORPUSCULAR HEMOGLOBIN 34.4 PG (27.0-31.0); MEAN CORPUSCULAR HGB CONC 35.4 g/dL (33.0-36.5); MEAN CORPUSCULAR VOLUME 97.1 FL (78-98); MEAN PLATELET VOLUME 9.1 FL (7.4-10.4); MONOCYTES # (AUTO) 1.3 X10'3 (0-0.9); MONOCYTES % (AUTO) 11.4 % (2-12); NEUTROPHILS % (AUTO) 71.5 % (42-75); PLATELET COUNT 97 X10'3 (140-440); RED BLOOD COUNT 3.97 X10'6 (4.70-6.10); RED CELL DISTRIBUTION WIDTH 13.2 % (11.5-14.5); WHITE BLOOD COUNT 11.2 X10'3 (4.5-11.0)
[2023-07-26] MEDS: phenobarbital sod 130mg/ml inj. IV ONE (21:54)
[2023-07-26] MEDS: normal saline 1000ML IV soln IVB ONE (21:58)
[2023-07-26 22:13] LABS: PROTHROMBIN TIME 10.3 SECONDS (9.0-12.0)
[2023-07-26 22:15] LABS: ALBUMIN 3.2 G/DL (3.4-5.0); ANION GAP 9 (8-16); BLOOD UREA NITROGEN 13 MG/DL (7-18); BUN/CREATININE RATIO 13.4 (10.0-20.0); CALCIUM 8.9 MG/DL (8.5-10.1); CHLORIDE 104 MMOL/L (99-107); CREATININE 0.97 MG/DL (0.60-1.10); GLUCOSE 101 MG/DL (70-104); LIPASE 21 U/L (16-77); POTASSIUM 3.7 MMOL/L (3.5-5.1); PRO BRAIN NATRIURETIC PEPTIDE 36 PG/ML (0-125); SODIUM 138 MMOL/L (135-145); TOTAL CARBON DIOXIDE 25.5 MMOL/L (24-32); eCRCL 89 ML/MIN; eGFR 82 ML/MIN
[2023-07-26 22:25] LABS: ETHANOL < 10 MG/DL (<10)
[2023-07-26] MEDS: ketorolac tromethamine 15mg/ml inj. IV ONE (22:49)
[2023-07-26] MEDS: thiamine 100mg/ml 2ml inj. IV ONE (22:49)
[2023-07-26] MEDS: acetaminophen 325mg tablet PO ONE (23:56)
[2023-07-27 00:39] LABS: BILIRUBIN,URINE NEGATIVE (Neg); CLARITY,URINE CLEAR (Clear); COLOR,URINE YELLOW (Yellow); GLUCOSE, URINE NEGATIVE (Neg); KETONES,URINE NEGATIVE (Neg); LEUKOCYTE ESTERASE ,URINE NEGATIVE (Neg); NITRITES, URINE NEGATIVE (Neg); OCCULT BLOOD,URINE NEGATIVE (Neg); PROTEIN,URINE NEGATIVE (Neg); UA COLLECTION TYPE URINAL
[2023-07-27] MEDS ORDERED: diazepam inj 5 MG/ML inj. IV ONE (01:35)
[2023-07-27] MEDS ORDERED: DIAZ5TAB23 PO (01:41)
[2023-07-27 02:09] VITALS: BP 128/91; PULSE 105; RESP 16; TEMP 99.1; O2SAT 97
[2023-07-27] MEDS: multivitamins, therapeutics tablet PO ONE (02:14)
[2023-07-27] MEDS: diazepam 5mg tablet PO ONE (02:14)
== END 2023-07-27 02:17 | disposition home or self-care (01) ==
LOC: ER 20:36
DX: R50.9 Fever, unspecified (principal); Z20.822 Contact with and (suspected) exposure to COVID-19; R42 Dizziness and giddiness; R09.89 Other specified symptoms and signs involving the circulatory and respiratory systems; J00 Acute nasopharyngitis [common cold]; F10.239 Alcohol dependence with withdrawal, unspecified; G89.29 Other chronic pain; F15.90 Other stimulant use, unspecified, uncomplicated; Z79.899 Other long term (current) drug therapy; Z79.2 Long term (current) use of antibiotics; Y90.0 Blood alcohol level of less than 20 mg/100 ml
CPT/HCPCS: 36415; 70450; 71045; 80048; 80320; 81003; 82140; 82948; 83690; 83880; 84145; 84484; 85025; 85610; 87502; 87503; 87811; 93005; 96374; 96375; 99285; J1885; J2560; J3411; J7030